=== PATIENT | female | born 1980 | race African-American/Black ===

== ENCOUNTER → 2021-08-09 | Outpatient (CLI) | payer BC | LOC: MAMO 12:30 | DX: Z12.31 Encounter for screening mammogram for malignant neoplasm of breast (principal) | CPT/HCPCS: 77063; 77067 ==

== ENCOUNTER → 2021-08-15 | Outpatient (CLI) | payer BC | LOC: EXRD 08-09 13:30 | DX: M85.88 Other specified disorders of bone density and structure, other site (principal) | CPT/HCPCS: 77080 ==